=== PATIENT | male | born 1960 | race Caucasian/White ===

== ENCOUNTER 2022-12-17 00:18 | Day surgery (SDC) | payer OTHER, SELFPAY ==
[2022-12-06 08:44] VITALS: BMI 24.8
[2022-12-17 06:42] VITALS: BP 145/89; PULSE 61; RESP 18; TEMP 36.3; O2SAT 99
[2022-12-17] MEDS: LACTATED RINGERS 1,000 ML 150 ML IV CONT (06:44)
--- NOTE | 2022-12-17 07:18 | WPDANESEPPF ---
Anes - Initial Pre Proc Eval Procedure: Operation Date: 12/17/22 08:00 Proposed Procedures p Colonoscopy - Denny Mendez MD Date/Time: 12/17/22 07:18 Surgeon: Denny Mendez MD Pre Op Diagnosis: hx colon polyps, RLQP, LLQP Patient Data Age: 62 Gender: M Height: 1.8 m Weight: 80.1 kg Last Vital Signs Temp 97.4 F L 12/17/22 06:42 Pulse 61 12/17/22 06:42 Resp 18 12/17/22 06:42 BP 145/89 H 12/17/22 06:42 Pulse Ox 99 12/17/22 06:42 O2 Del Method Room Air 12/17/22 06:42 Allergies Allergy/AdvReac Type Severity Reaction Status Date / Time TEN Inhibitors AdvReac Intermediate Cough Verified 12/17/22 06:38 Home Medications Medication Instructions Recorded Confirmed Type esomeprazole magnesium 40 mg 40 mg PO DAILY 10/24/22 12/17/22 History capsule,delayed release famotidine 40 mg tablet 40 mg PO DAILY 10/24/22 12/17/22 History hyoscyamine sulfate 0.125 mg tablet 0.125 mg PO QID abdominal cramping 10/24/22 12/17/22 Rx 1 month #120 tabs losartan 25 mg tablet 25 mg PO DAILY 10/24/22 12/17/22 History Patient hx anesthesia problems: none Family hx anesthesia problems: none Results Review: All pre-operative results and documents have been reviewed as part of the pre-operative evaluation. [facility] Past Medical History Medical History (Updated 10/25/22 @ 10:38 by MOSES Mckee) Bilateral inguinal hernia Bilateral lower abdominal cramping CAD (coronary artery disease) Colon polyps GERD (gastroesophageal reflux disease) History of colon polyps HLD (hyperlipidemia) HTN (hypertension) Myocardial infarct Surgical History Surgical History (Updated 10/24/22 @ 19:14 by MOSES Mckee) History of inguinal hernia repair, bilateral Social History Social History Smoking status: Former smoker Tobacco type: cigarettes Substance use type: does not use Living arrangements: with family Anes - Eval Final PreProcedure Day of Procedure 12/17/22 07:18 Patient weight: normal Heart: regular rate and rhythm Lungs: clear to auscultation Airway: Mallampati scale class II Neurological: alert and oriented Last oral intake: >/= 8 hours ASA classification: III Emergent: no Anesthetic plan: proceed Anesthesia type and monitoring: general GIVS and standard monitoring Results Review: All pre-operative results and documents have been reviewed as part of the pre-operative evaluation. Informed Consent: The patient's anesthetic plan and its attendant risks and benefits were discussed with the patient/family/POA. Questions were solicited and answers provided to the satisfaction of the patient/family/POA.
--- NOTE | 2022-12-17 07:47 | PM.HPGS ---
History of Present Illness History of Present Illness Consent: Risks, benefits, and alternatives have been discussed and questions answered. Patient agrees to proceed with procedure. Chief complaint: hx colon polyps, RLQP, LLQP Narrative: Víctor Gold is a 62 year old male with colon polyp in 2016 Review of Systems Constitutional: Constitutional: Denies headache(s) and Denies weakness Eyes: Eyes: Denies blurry vision ENT: Reports Normal hearing present, Denies headache(s) and Denies neck pain Cardiovascular: Cardiovascular: Denies chest pain and Denies dyspnea Respiratory: Respiratory: Denies dyspnea Gastrointestinal: Gastrointestinal: Reports no additional gastrointestinal complaints Genitourinary: Genitourinary: Denies dysuria Musculoskeletal: Musculoskeletal: Denies neck pain Integumentary/Breasts: Skin/Breast: Denies dry skin Neurologic: Reports Normal hearing present, Denies headache(s) and Denies weakness Psychiatric: Psychiatric: Denies anxiety Endocrine: Endocrine: Denies change in body appearance Hematologic/Lymphatic: Hematologic/Lymphatic: Denies easy bleeding Allergic/Immunologic: Allergic/Immunologic: Denies urticaria PMF Past Medical History Medical History (Updated 10/25/22 @ 10:38 by SHIRA MckeeN-C) Bilateral inguinal hernia Bilateral lower abdominal cramping CAD (coronary artery disease) Colon polyps GERD (gastroesophageal reflux disease) History of colon polyps HLD (hyperlipidemia) HTN (hypertension) Myocardial infarct Surgical History Surgical History (Updated 10/24/22 @ 19:14 by SHIRA MckeeN-C) History of inguinal hernia repair, bilateral Social History Social History Smoking status: Former smoker Tobacco type: cigarettes Substance use type: does not use Living arrangements: with family Meds Home Medications and Allergies Home Medications Medication Instructions Recorded Confirmed Type esomeprazole magnesium 40 mg 40 mg PO DAILY 10/24/22 12/17/22 History capsule,delayed release famotidine 40 mg tablet 40 mg PO DAILY 10/24/22 12/17/22 History hyoscyamine sulfate 0.125 mg tablet 0.125 mg PO QID abdominal cramping 10/24/22 12/17/22 Rx 1 month #120 tabs losartan 25 mg tablet 25 mg PO DAILY 10/24/22 12/17/22 History Allergies Allergy/AdvReac Type Severity Reaction Status Date / Time TEN Inhibitors AdvReac Intermediate Cough Verified 12/17/22 06:38 Vital Signs Vital Signs - 24 hr 12/17/22 06:42 Temperature 97.4 F L Pulse Rate 61 Respiratory Rate 18 Blood Pressure 145/89 H Pulse Oximetry 99 Oxygen Delivery Room Air Exam Const: General: comfortable and no acute distress HENMT: Face/Nose/Sinus: Normal nares present Eyes: General: appearance normal, both eyes and all related structures Neck: Neck: no JVD Resp: Auscultation: clear to auscultation bilaterally Cardio: Rate: regular rate Rhythm: regular rhythm GI: Inspection: non-distended GI Palp: Yes Soft to palpation Skin: General skin exam: normal color Neuro: General: gait normal Speech: normal speech Extrem: General: normal to inspection Psych: Mental Status: mental status grossly normal Assessment and Plan Assessment and plan (1) History of colon polyps: Code(s): Z86.010 - Personal history of colonic polyps Status: Acute Assessment and Plan: colonoscopy
[2022-12-17 08:05] VITALS: BP 102/69; PULSE 59; RESP 13; O2SAT 95
[2022-12-17 08:15] VITALS: BP 105/72; PULSE 61; RESP 15; O2SAT 98
[2022-12-17 08:25] VITALS: BP 124/90; PULSE 63; RESP 16; O2SAT 96
== END 2022-12-17 08:36 | disposition home or self-care (01) ==
PROVIDERS: PCP Family Medicine; Visit Provider Internal Medicine Gastroenterology
PROC: 0DJD8ZZ Inspection of Lower Intestinal Tract, Via Natural or Artificial Opening Endoscopic (ICD-10-PCS; CPT 45378; principal; 2022-12-17 08:00)
DX: Z12.11 Encounter for screening for malignant neoplasm of colon (principal); D12.4 Benign neoplasm of descending colon; K64.8 Other hemorrhoids; I25.10 Atherosclerotic heart disease of native coronary artery without angina pectoris; I10 Essential (primary) hypertension; E78.5 Hyperlipidemia, unspecified; K21.9 Gastro-esophageal reflux disease without esophagitis; I25.2 Old myocardial infarction; Z87.891 Personal history of nicotine dependence
CPT/HCPCS: 45385; 88305; J2704; J7120

== ENCOUNTER 2024-05-14 01:10 | Day surgery (SDC) | payer OTHER, SELFPAY ==
[2024-05-12 15:41] VITALS: BMI 24.5
[2024-05-14 07:37] VITALS: BP 152/99; PULSE 64; RESP 16; TEMP 36.4; O2SAT 98; BMI 24.8
[2024-05-14] MEDS: LACTATED RINGERS 1,000 ML 150 ML IV CONT (07:50)
--- NOTE | 2024-05-14 08:15 | P.PNAN_ITS ---
Anes - Initial Pre Proc Eval Procedure: Operation Date: 05/14/24 08:30 Proposed Procedures p Esophagogastroduodenoscopy EGD - Yomi Peña MD Date/Time: 05/14/24 08:15 Surgeon: Yomi Peña MD Pre Op Diagnosis: gastro-esophageal reflux disease without esophagis Patient Data Age: 63 Gender: M Height: 1.8 m Weight: 80.8 kg Last Vital Signs Temp 97.5 F L 05/14/24 07:37 Pulse 64 05/14/24 07:37 Resp 16 05/14/24 07:37 BP 152/99 H 05/14/24 07:37 Pulse Ox 98 05/14/24 07:37 O2 Del Method Room Air 05/14/24 07:37 Allergies Allergy/AdvReac Type Severity Reaction Status Date / Time TEN Inhibitors AdvReac Intermediate Cough Verified 05/14/24 07:36 Home Medications Medication Instructions Recorded Confirmed Type famotidine 40 mg tablet 40 mg PO DAILY 10/24/22 05/14/24 History losartan 25 mg tablet 25 mg PO DAILY 10/24/22 05/14/24 History esomeprazole magnesium 40 mg 40 mg PO DAILY 3 months #90 caps 02/13/23 05/14/24 Rx capsule,delayed release hyoscyamine sulfate 0.125 mg tablet 0.125 mg PO QID abdominal cramping 03/04/23 05/14/24 Rx 1 month #120 tabs aspirin 81 mg tablet,delayed 81 mg PO .MWF 04/30/24 05/14/24 History release Patient hx anesthesia problems: none Family hx anesthesia problems: none Results Review: All pre-operative results and documents have been reviewed as part of the pre- operative evaluation. [facility] Past Medical History Medical History Bilateral inguinal hernia Bilateral lower abdominal cramping CAD (coronary artery disease) Colon polyps GERD (gastroesophageal reflux disease) History of colon polyps History of Helicobacter pylori infection HLD (hyperlipidemia) HTN (hypertension) Myocardial infarct Surgical History Surgical History History of inguinal hernia repair, bilateral Social History Social History Smoking packs per day: 1 Smoking cigarettes per day: 20.0 Years smoked: 36 Smoking pack-years: 36.00 Smoking status: Former smoker Tobacco type: cigarettes Alcohol intake: current Drinks per week: 2 Substance use type: does not use Living arrangements: with family Additional living arrangements comments: with soniya Doan Final PreProcedure Day of Procedure 05/14/24 08:15 Patient weight: normal Heart: regular rate and rhythm Lungs: clear to auscultation Airway: Mallampati scale class II Neurological: alert and oriented Last oral intake: >/= 8 hours ASA classification: III Emergent: no Anesthetic plan: proceed Anesthesia type and monitoring: general GIVS and standard monitoring Results Review: All pre-operative results and documents have been reviewed as part of the pre- operative evaluation. Hx of PTCA 2017 x 1. Pt doing well since. Ex smoker, and quit 2014. ELLA on CPAP. Informed Consent: The patient's anesthetic plan and its attendant risks and benefits were discussed with the patient/family/POA. Questions were solicited and answers provided to the satisfaction of the patient/family/POA.
--- NOTE | 2024-05-14 08:40 | PM.IMHP ---
H&P: HPI History of Present Illness Date/Time: 05/14/24 08:40 Chief Complaint: Epigastric pain Narrative: the patient states that after he has been prescribed aspirin for his myocardial infarction, he feels epigastric/ meso gastric abdominal pain, which is sharp, diffuse and sometimes radiated to the Right upper quadrant. He also complains of gas and discomfort in the periumbilical area. This complains decreased after his aspirin dosage was switched to every other day instead of every day. He has been diagnosed with H pylori 6 years ago. Review of Systems Review of Systems: All systems reviewed & are unremarkable except as noted in HPI and below PMFSH Past Medical History Medical History Bilateral inguinal hernia Bilateral lower abdominal cramping CAD (coronary artery disease) Colon polyps GERD (gastroesophageal reflux disease) History of colon polyps History of Helicobacter pylori infection HLD (hyperlipidemia) HTN (hypertension) Myocardial infarct Surgical History Surgical History History of inguinal hernia repair, bilateral Social History Social History Smoking packs per day: 1 Smoking cigarettes per day: 20.0 Years smoked: 36 Smoking pack-years: 36.00 Smoking status: Former smoker Tobacco type: cigarettes Alcohol intake: current Drinks per week: 2 Substance use type: does not use Living arrangements: with family Additional living arrangements comments: with sp Meds Home Medications and Allergies Home Medications Medication Instructions Recorded Confirmed Type famotidine 40 mg tablet 40 mg PO DAILY 10/24/22 05/14/24 History losartan 25 mg tablet 25 mg PO DAILY 10/24/22 05/14/24 History esomeprazole magnesium 40 mg 40 mg PO DAILY 3 months #90 caps 02/13/23 05/14/24 Rx capsule,delayed release hyoscyamine sulfate 0.125 mg tablet 0.125 mg PO QID abdominal cramping 03/04/23 05/14/24 Rx 1 month #120 tabs aspirin 81 mg tablet,delayed 81 mg PO .MWF 04/30/24 05/14/24 History release Allergies Allergy/AdvReac Type Severity Reaction Status Date / Time TEN Inhibitors AdvReac Intermediate Cough Verified 05/14/24 07:36 Vital Signs Vital Signs - 24 hr 05/14/24 07:37 Temperature 97.5 F L Pulse Rate 64 Respiratory Rate 16 Blood Pressure 152/99 H Pulse Oximetry 98 Oxygen Delivery Room Air Exam Const: General: cooperative and healthy appearing Resp: Effort & Inspection: normal respiratory effort and able to speak in complete sentences Auscultation: clear to auscultation bilaterally Cardio: Rate: regular rate Rhythm: regular rhythm GI: Inspection: normal to inspection GI Palp: No No hepatosplenomegaly present Auscultation: normal bowel sounds Rectal Exam: deferred Skin: General skin exam: normal color Psych: Appearance: grossly normal Mental Status: mental status grossly normal Assessment and Plan Assessment and plan (1) Epigastric pain: Code(s): R10.13 - Epigastric pain Status: Acute Assessment and Plan: The patient is deemed a good candidate for the procedure. Consent signed. Will proceed.
[2024-05-14 08:57] VITALS: BP 120/81; PULSE 67; RESP 16; O2SAT 97
[2024-05-14 09:07] VITALS: BP 117/87; PULSE 70; RESP 19; O2SAT 96
[2024-05-14 09:17] VITALS: BP 147/99; PULSE 62; RESP 15; O2SAT 98
== END 2024-05-14 09:29 | disposition home or self-care (01) ==
PROVIDERS: PCP Family Medicine; Visit Provider Internal Medicine Gastroenterology
PROC: 0DJ08ZZ Inspection of Upper Intestinal Tract, Via Natural or Artificial Opening Endoscopic (ICD-10-PCS; CPT 43235; principal; 2024-05-14 08:30)
DX: K29.30 Chronic superficial gastritis without bleeding (principal); I25.10 Atherosclerotic heart disease of native coronary artery without angina pectoris; I10 Essential (primary) hypertension; E78.5 Hyperlipidemia, unspecified; K21.9 Gastro-esophageal reflux disease without esophagitis; I25.2 Old myocardial infarction; Z87.891 Personal history of nicotine dependence
CPT/HCPCS: 43239; 88305; J2003; J2704; J7120